=== PATIENT | female | born 1955 | race African-American/Black ===

== ENCOUNTER 2016-11-21 21:57 | Emergency (ER) | payer SELFPAY ==
[~2016-11-21] VITALS: Ht 167.6 cm; Wt 102.1 kg
[2016-11-21 22:25] VITALS: BP 153/84
[2016-11-21] MEDS ORDERED: DIPHTH,PERTUSS(ACELL),TET TOX 0.5 ML DISP.SYRIN. VAX IM ONE (23:00)
[2016-11-21] MEDS ORDERED: LIDOCAINE 2% 20 ML VIAL. IJ ONE (23:00)
--- NOTE | 2016-11-21 23:30 | PHYS DOC ---
Past Medical History Past Medical History: Asthma, Hypertension Past Surgical History: Tonsillectomy Alcohol Use: Occasionally Drug Use: None Adult General Chief Complaint Chief Complaint: LACERATION/AVULSION HPI HPI Patient is a 61 year old female presents the ED complaining of right finger laceration 13 hours. Patient states she was making something in the kitchen and cut herself with a knife. Describes the pain as sharp. Rates the pain as 6 out of 10. Full range of motion. Denies fever, difficulty with range of motion, headache, n/v or dizziness. Review of Systems Review of Systems Constitutional: Denies fever or chills [] Eyes: Denies change in visual acuity, redness, or eye pain [] HENT: Denies nasal congestion or sore throat [] Respiratory: Denies cough or shortness of breath [] Cardiovascular: No additional information not addressed in HPI [] GI: Denies abdominal pain, nausea, vomiting, bloody stools or diarrhea [] : Denies dysuria or hematuria [] Musculoskeletal: Complains of finger pain. Denies back pain or joint pain [] Integument: Denies rash or skin lesions [] Neurologic: Denies headache, focal weakness or sensory changes [] Endocrine: Denies polyuria or polydipsia [] Current Medications Current Medications Current Medications Medications (Trade) Dose Ordered Sig/Antonio Start Time Stop Time Status Last Admin Dose Admin Diphtheria/ Tetanus/Acell Pertussis (Boostrix) 0.5 ml ONCE ONCE 11/21/16 23:00 11/21/16 23:01 DC 11/21/16 22:58 0.5 ML Lidocaine HCl 20 ml 1X ONCE 11/21/16 23:00 11/21/16 23:01 DC 11/21/16 22:56 20 ML Allergies Allergies Allergies Coded Allergies Type Severity Reaction Last Updated Verified No Known Drug Allergies 11/21/16 No Physical Exam Physical Exam Constitutional: Well developed, well nourished, no acute distress, non-toxic appearance. [] HENT: Normocephalic, atraumatic, bilateral external ears normal, oropharynx moist, no oral exudates, nose normal. [] Eyes: PERRLA, EOMI, conjunctiva normal, no discharge. [] Neck: Normal range of motion, no tenderness, supple, no stridor. [] Cardiovascular:Heart rate regular rhythm, no murmur [] Lungs & Thorax: Bilateral breath sounds clear to auscultation [] Abdomen: Bowel sounds normal, soft, no tenderness, no masses, no pulsatile masses. [] Skin: Warm, dry, no erythema, no rash. [] Back: No tenderness, no CVA tenderness. [] Extremities: 2 CM LACERATION TO RIGHT VOLAR DISTAL 3RD FINGER. NO TENDON LACERATION, no cyanosis, no clubbing, ROM intact, no edema. [] Neurologic: Alert and oriented X 3, normal motor function, normal sensory function, no focal deficits noted. [] Psychologic: Affect normal, judgement normal, mood normal. [] Current Patient Data Vital Signs Vital Signs Date Time Temp Pulse Resp B/P (MAP) Pulse Ox O2 Delivery O2 Flow Rate FiO2 11/21/16 22:25 97.9 72 18 97 Room Air 97.9 EKG EKG [] Radiology/Procedures Radiology/Procedures [] Course & Med Decision Making Course & Med Decision Making Pertinent Labs and Imaging studies reviewed. (See chart for details) Laceration repaired. No complications. Tetanus updated. Will discharge with provided antibiotic's. Patient's pain improved. Vital stable, no acute distress. Discussed follow-up for wound reevaluation in 3 days. Discussed reasons to return to the ED. Patient understands and agrees with plan. Dragon Disclaimer Dragon Disclaimer This electronic medical record was generated, in whole or in part, using a voice recognition dictation system. Departure Departure Impression: Primary Impression: Finger laceration Disposition: 01 HOME, SELF-CARE Condition: IMPROVED Referrals: NO PCP (PCP) EMY ARMENTA MD Patient Instructions: Laceration Care, Adult Scripts Cephalexin (KEFLEX) 500 Mg Capsule 1 CAP PO BID, #20 CAP Prov: CECI MANN 11/21/16 Laceration/Wound Repair Laceration/Wound Repair : Wound Location: upper extremity (RIGHT 3RD FINGER) Wound's Depth, Shape: superficial Wound Length (cm): 2 Wound Explored: clean Irrigated w/ Saline (ccs): 250 Betadine Prep?: Yes Anesthesia: 1% Lidocaine Wound Repaired With: sutures (11) Suture Size/Type: 3:0, nylon Number of Sutures: 11 Sterile Dressing Applied?: Yes Progress Procedure tolerated well. No complications. CECI MANN Nov 21, 2016 23:30
[2016-11-21] MEDS ORDERED: CEPH-264 PO (23:32)
== END 2016-11-21 23:50 | disposition home or self-care (01) ==
LOC: ER 21:57
DX: S61.212A Laceration without foreign body of right middle finger without damage to nail, initial encounter (principal); J45.909 Unspecified asthma, uncomplicated; I10 Essential (primary) hypertension; W26.0XXA Contact with knife, initial encounter; Y93.89 Activity, other specified; Y92.090 Kitchen in other non-institutional residence as the place of occurrence of the external cause; Y99.8 Other external cause status
CPT/HCPCS: 12001; 90471; 90715; 99283-25; J2001